=== PATIENT | female | born 1975 | race Two or more races ===

== ENCOUNTER 2017-07-26 14:52 | Emergency (ER) | payer OTHER ==
[~2017-07-26] VITALS: Ht 157.5 cm; Wt 86.2 kg
[~2017-07-26 14:52] MED LIST: AVELOX ABC PAC400 MG; CIPRO500 MG PO; CLARITIN10 M1 PO; GILTUSS TR TAB1 EACH PO; IRON1TAB4 PO; KETO10TA2 PO; ORPH100T PO; TORADOL10 MG; VERTICALM25 MG PO; ZITHROMAX500 MG PO
[2017-07-26] MEDS ORDERED: SYNTHROID75 MCG (15:33)
== END 2017-07-26 20:00 | disposition home or self-care (01) ==
LOC: ER 14:52
DX: B34.9 Viral infection, unspecified (principal)

== ENCOUNTER 2017-09-25 20:46 | Emergency (ER) | payer OTHER ==
[~2017-09-25] VITALS: Ht 167.6 cm; Wt 86.2 kg
[~2017-09-25 20:46] MED LIST changes: +SYNTHROID75 MCG
[2017-09-26] MEDS ORDERED: PEPCID40 MG PO (04:57)
[2017-09-26] MEDS ORDERED: PHENERGAN25 MG PO (04:57)
== END 2017-09-26 04:55 | disposition home or self-care (01) ==
LOC: ER 20:46
DX: K29.70 Gastritis, unspecified, without bleeding (principal)

== ENCOUNTER 2018-03-08 19:14 | Emergency (ER) | payer OTHER ==
[~2018-03-08] VITALS: Ht 167.6 cm; Wt 90.7 kg
[~2018-03-08 19:14] MED LIST changes: +PEPCID40 MG PO; +PHENERGAN25 MG PO
[2018-03-09] MEDS ORDERED: MEDROL8 MG PO (04:05)
[2018-03-09] MEDS ORDERED: ALLEGRA ALLERG180 MG PO (04:05)
[2018-03-09] MEDS ORDERED: CIPRO500 MG PO (04:05)
[2018-03-09] MEDS ORDERED: IRON1TAB4 PO ×2 (04:06→04:08)
== END 2018-03-09 03:56 | disposition home or self-care (01) ==
LOC: ER 19:14
DX: N93.8 Other specified abnormal uterine and vaginal bleeding (principal); N39.0 Urinary tract infection, site not specified; R21 Rash and other nonspecific skin eruption

== ENCOUNTER 2020-12-14 17:22 | Emergency (ER) | payer OTHER ==
[~2020-12-14] VITALS: Ht 167.6 cm; Wt 90.7 kg
[~2020-12-14 17:22] MED LIST changes: +ALLEGRA ALLERG180 MG PO; +MEDROL8 MG PO
[2020-12-14] MEDS ORDERED: LEVOTHYROXINE25 MCG (17:41)
== END 2020-12-14 21:41 | disposition home or self-care (01) ==
LOC: ER 17:22
DX: R53.81 Other malaise (principal); E03.9 Hypothyroidism, unspecified

== ENCOUNTER 2021-07-23 13:39 | Emergency (ER) | payer OTHER ==
[~2021-07-23] VITALS: Ht 167.6 cm; Wt 90.7 kg
[~2021-07-23 13:39] MED LIST changes: +LEVOTHYROXINE25 MCG
== END 2021-07-23 17:05 | disposition home or self-care (01) ==
LOC: ER 13:39
DX: N39.0 Urinary tract infection, site not specified (principal)

== ENCOUNTER 2022-02-26 17:24 | Emergency (ER) | payer OTHER ==
[~2022-02-26] VITALS: Ht 167.6 cm; Wt 99.8 kg
== END 2022-02-26 21:17 | disposition home or self-care (01) ==
LOC: ER 17:24
DX: M54.50 Low back pain, unspecified (principal); M25.551 Pain in right hip; M43.9 Deforming dorsopathy, unspecified; Z88.0 Allergy status to penicillin

== ENCOUNTER 2022-12-25 15:40 | Emergency (ER) | payer OTHER ==
[~2022-12-25] VITALS: Ht 167.6 cm; Wt 108.9 kg
[2022-12-25] MEDS ORDERED: BACTRIM DS TAB1 EACH PO (18:10)
[2022-12-25] MEDS ORDERED: MUPIROCIN22 GM NASAL (18:10)
[2022-12-25] MEDS ORDERED: DICLOFENAC SODI75 MG PO (18:10)
== END 2022-12-25 18:19 | disposition home or self-care (01) ==
LOC: ER 15:40
DX: L02.412 Cutaneous abscess of left axilla (principal); Z88.0 Allergy status to penicillin

== ENCOUNTER 2023-09-05 12:03 | Emergency (ER) | payer OTHER ==
[~2023-09-05] VITALS: Ht 167.6 cm; Wt 104.3 kg
[~2023-09-05 12:03] MED LIST changes: +BACTRIM DS TAB1 EACH PO; +DICLOFENAC SODI75 MG PO; +MUPIROCIN22 GM NASAL
[2023-09-05] MEDS ORDERED: GLUMETZA500 MG PO (12:29)
[2023-09-05] MEDS ORDERED: SYNTHROID50 MCG PO (12:29)
[2023-09-05] MEDS ORDERED: KETOROLAC TROMETHAMINE 30 MG VIAL IM STA (13:18)
[2023-09-05] MEDS ORDERED: CLINDAMYCIN PHOSPHATE 150 MG/ML (600mg) IM STA (13:18)
== END 2023-09-05 13:36 | disposition home or self-care (01) ==
LOC: ER 12:03
DX: L02.11 Cutaneous abscess of neck (principal); E11.9 Type 2 diabetes mellitus without complications; Z79.84 Long term (current) use of oral hypoglycemic drugs; Z88.0 Allergy status to penicillin

== ENCOUNTER 2024-02-06 11:36 | Emergency (ER) | payer OTHER ==
[~2024-02-06] VITALS: Ht 167.6 cm; Wt 99.8 kg
[~2024-02-06 11:36] MED LIST changes: +GLUMETZA500 MG PO; +SYNTHROID50 MCG PO
[2024-02-06] MEDS ORDERED: KETOROLAC TROMETHAMINE 30 MG VIAL IM STA (13:27)
[2024-02-06] MEDS ORDERED: KETOROLAC TROMETHAMINE 30 MG VIAL ONE (13:34)
== END 2024-02-06 14:33 | disposition home or self-care (01) ==
LOC: ER 11:36
DX: M25.561 Pain in right knee (principal); Z88.0 Allergy status to penicillin

== ENCOUNTER 2024-03-28 09:15 | Emergency (ER) | payer OTHER ==
[~2024-03-28] VITALS: Ht 167.6 cm; Wt 108.9 kg
[2024-03-28] MEDS ORDERED: KETOROLAC TROMETHAMINE 60 MG VIAL IM ONE (09:52)
[2024-03-28] MEDS ORDERED: 0.9 % SODIUM CHLORIDE 1,000 ML IV STA (09:58)
[2024-03-28] MEDS ORDERED: FAMOtidine 40 MG TABLET PO STA (10:04)
[2024-03-28] MEDS ORDERED: ONDANSETRON HCL 2 MG/ML VIAL IV ONE (10:15)
[2024-03-28 10:23] LABS: HEMATOCRIT 39.8 % (36.0-45.00); HEMOGLOBIN 12.6 g/dL (12.0-15.00); MEAN CORPUSCULAR HEMOGLOBIN 23.9 pg (27.00-32.0); MEAN CORPUSCULAR HGB CONC 31.8 g/dl (32.0-36.0); PLATELET COUNT 369 K/uL (150-450)
[2024-03-28 10:47] LABS: CALCIUM 9.4 mg/dL (8.5-10.1); CREATININE SERUM 0.9 mg/dL (0.55-1.02); GFR 67.41; POTASSIUM 3.89 mEq/L (3.5-5.1)
[2024-03-28 11:31] LABS: PH,URINE 5.5 (5.0-8.0); URINE APPEARANCE Clear; URINE BILIRRUBIN Negative (NEGATIVE); URINE BLOOD Negative; URINE COLOR Yellow; URINE GLUCOSE Negative (NEGATIVE); URINE KETONE Negative (NEGATIVE); URINE LEUKOCYTE Negative; URINE NITRATE Negative; URINE PROTEIN Negative (NEGATIVE); URINE UROBILINOGEN 0.2 E.U./dl
[2024-03-28 11:35] LABS: URINE BACTERIA 4372.1 uL (0.0-1933); URINE EPITHELIAL CELLS 80.9 uL (0.0-38.8); URINE RBC 17.1 uL (0.0-20.8); URINE WBC 13.4 uL (0.0-23.2)
== END 2024-03-28 13:32 | disposition home or self-care (01) ==
LOC: ER 09:17
PROVIDERS: General Practice
DX: K52.89 Other specified noninfective gastroenteritis and colitis (principal); E03.8 Other specified hypothyroidism; Z88.0 Allergy status to penicillin; Z20.822 Contact with and (suspected) exposure to COVID-19

== ENCOUNTER 2025-02-14 00:54 | Emergency (ER) | payer OTHER ==
[~2025-02-14] VITALS: Ht 167.6 cm; Wt 113.4 kg
[2025-02-14] MEDS ORDERED: CLEOCIN HCL300 MG PO (01:07)
[2025-02-14] MEDS ORDERED: KETOROLAC TROMETHAMINE 30 MG VIAL IV STA (04:41)
[2025-02-14] MEDS ORDERED: CLINDAMYCIN PHOSPHATE 150 MG/ML (900mg) IV STA (04:41)
[2025-02-14 05:39] LABS: BASO % 0.3 % (0.1-1.2); EOS # 0.29 (0.04-0.54); EOS % 2.3 % (0.7-7.0); LYMPH # 3.49 (1.18-3.74); LYMPH % 28.1 % (19.3-53.1); MEAN PLATELET VOLUME 8.90 fl (9.4-12.4); MONO # 0.63 (0.24-0.82); MONO % 5.1 % (4.7-12.5); NEUT # 7.92 (1.56-6.13); NEUT % 63.9 % (34.0-71.1); RED CELL DISTRIBUTION WIDTH 14.3 % (11.6-14.4)
[2025-02-14 06:03] LABS: ALT/SGPT 45.0 U/L (12-78); AST/SGOT 20.0 U/L (15-37); BILIRUBIN TOTAL 0.28 mg/dL (0.3-1.2); BUN CREA RATIO 19.0 (7.0-25.0); CREATININE SERUM 0.84 mg/dL (0.55-1.02); GFR 72.67; GLOBULINA 4.5 G/DL (2.4-3.5); GLUCOSE FASTING 125.0 mg/dL (65-100); OSMOLALITY SERUM 286.0 MOSM/KG (275-295)
[2025-02-14] MEDS ORDERED: DOXYCYCLINE HY100 MG PO (07:40)
== END 2025-02-14 08:04 ==
LOC: ER 01:16
PROVIDERS: General Practice
DX: O26.892 Other specified pregnancy related conditions, second trimester (principal); Z3A.25 25 weeks gestation of pregnancy; R42 Dizziness and giddiness

== ENCOUNTER 2025-05-06 19:55 | Emergency (ER) | payer OTHER ==
[~2025-05-06] VITALS: Ht 167.6 cm; Wt 113.4 kg
[~2025-05-06 19:55] MED LIST changes: +CLEOCIN HCL300 MG PO; +DOXYCYCLINE HY100 MG PO
[2025-05-06] MEDS ORDERED: SYNTHROID100 MCG PO (20:33)
[2025-05-06] MEDS ORDERED: SINVASTATIN PO (20:34)
[2025-05-06] MEDS ORDERED: DEXAMETHASONE SODIUM PHOSPHATE 4 MG/ML VIAL IM STA (20:52)
[2025-05-06] MEDS ORDERED: ORPHENADRINE CITRATE 30 MG/ML AMPUL IM STA (20:52)
[2025-05-06] MEDS ORDERED: KETOROLAC TROMETHAMINE 30 MG VIAL IM STA (20:52)
[2025-05-07] MEDS ORDERED: MUPIROCIN15 GM TOP (00:35)
== END 2025-05-07 00:54 | disposition home or self-care (01) ==
LOC: ER 19:55
DX: L73.8 Other specified follicular disorders (principal); Z88.0 Allergy status to penicillin